=== PATIENT | male | born 1975 | race Caucasian/White ===

== ENCOUNTER 2023-06-12 09:09 | Outpatient (OUT) | payer OTHER, SELFPAY ==
--- NOTE | 2023-06-12 09:19 | XR_ITS ---
The [address] [address] Patient Name: ARSH AMOR MRN: [id number] date: 1975 Sex: M Assigned Patient Location: RAD Current Patient Location: [facility] Accession/Order Number: [id number] Exam Date: 06/12/2023 09:20 Report Date: 06/13/2023 07:13 At the request of: BATOOL CHA Procedure: XR lumbar spine 6V w bending EXAMINATION: XR lumbar spine 6V w bending HISTORY: Strain of lumbar region S39.012A COMPARISON: No relevant comparison available. FINDINGS: BONES: Mild grade 1 retrolisthesis of L2 on 3 and L3 on L4; no significant change between flexion, extension, neutral positions. No fracture or bone lesion. Mild degenerative facet arthropathy L3-4 through L5-S1. DISC SPACES: Moderate narrowing L3-4. PARASPINOUS: Negative. No paraspinous abnormality is seen. OTHER: Negative. XR/XR lumbar spine 6V w bending IMPRESSION: 1. No appreciable acute abnormality. 2. Moderate degenerative changes of lumbar spine. Consider MRI for further evaluation. Electronically authenticated by: ASHLEE SIEGEL Date: 06/13/2023 07:13
--- NOTE | 2023-06-12 09:20 | XR_ITS ---
The [address] [address] Patient Name: ARSH AMOR MRN: [id number] date: 1975 Sex: M Assigned Patient Location: RAD Current Patient Location: Accession/Order Number: [id number] Exam Date: 06/12/2023 09:20 Report Date: 06/13/2023 07:07 At the request of: BATOOL CHA Procedure: XR hip RT 2V w/ pelvis PROCEDURE: XR hip RT 2V w/ pelvis HISTORY: Pain of lumbar region S39.012A, Acute Rt hip pain M25.551 COMPARISON: None. FINDINGS: BONES:No fracture, acute abnormality, or significant arthropathy. SOFT TISSUES:No visible soft tissue swelling. EFFUSION:None visible. OTHER: Negative. XR/XR hip RT 2V w/ pelvis IMPRESSION: 1. No acute bone abnormality or significant degenerative joint disease. Electronically authenticated by: ASHLEE SIEGEL Date: 06/13/2023 07:07
== END 2023-06-12 09:10 | disposition home or self-care (01) ==
LOC: RAD 09:14
PROVIDERS: PCP Internal Medicine; Visit Provider Internal Medicine
DX: M25.551 Pain in right hip (principal); S39.012A Strain of muscle, fascia and tendon of lower back, initial encounter
CPT/HCPCS: 72114; 73502